=== PATIENT | male | born 1955 | race Caucasian/White ===

== ENCOUNTER 2018-05-07 18:02 | Emergency (ER) | payer SELFPAY ==
--- NOTE | 2018-05-07 20:27 | ED ---
Lower Extremity - HPI Summary HPI Summary: 62-year-old male presents with right middle finger erythema for the past couple days. He states he's had this before and he gets some pus drainage from the area from the tip of his finger. 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 He states that they removed the nail. He is not diabetic. No fevers. No spreading redness. He has not been on antibiotics recently. Has full range of motion of the finger. - History of Current Complaint Chief Complaint: EDExtremityUpper Stated Complaint: RT FINGER INJURY Time Seen by Provider: 05/07/18 19:30 Pain Intensity: 0 - Allergies/Home Medications Allergies/Adverse Reactions: Allergies Allergy/AdvReac Type Severity Reaction Status Date / Time morphine Allergy Itching Verified 05/07/18 18:07 PMH/Surg Hx/FS Hx/Imm Hx Endocrine/Hematology History: Denies: Hx Anticoagulant Therapy Cardiovascular History: Denies: Hx Myocardial Infarction Infectious Disease History: No Infectious Disease History: Denies: Traveled Outside the [place] in Last 30 Days - Family History Known Family History: Negative: Diabetes - Social History Substance Use Type: Reports: None Smoking Status (MU): Unknown if Ever Smoked Review of Systems Negative: Fever Negative: Chest Pain Negative: Shortness Of Breath Positive: Myalgia - right middle finger erythema All Other Systems Reviewed And Are Negative: Yes Physical Exam Triage Information Reviewed: Yes Vital Signs On Initial Exam: Initial Vitals Temp Pulse Resp BP Pulse Ox 97.6 F 74 18 143/80 99 05/07/18 18:04 05/07/18 18:04 05/07/18 18:04 05/07/18 18:04 05/07/18 18:04 Vital Signs Reviewed: Yes Appearance: Positive: Well-Appearing Skin: Positive: Warm, Dry, Other - erthyema on right middle finger tip does not follow tendon sheath Head/Face: Positive: Normal Head/Face Inspection Eyes: Positive: Normal, Conjunctiva Clear ENT: Positive: Pharynx normal Respiratory/Lung Sounds: Positive: Clear to Auscultation, Breath Sounds Present Cardiovascular: Positive: Normal, RRR Musculoskeletal: Positive: Strength/ROM Intact - right middle finger, Other - good pulses Neurological: Positive: Normal Psychiatric: Positive: Normal Procedures - Incision and Drainage right middle finger Site: right middle finger Anesthesia: Digital Instrument(s): Needle Diagnostics - Vital Signs Vital Signs Temp Pulse Resp BP Pulse Ox 05/07/18 18:04 97.6 F 74 18 143/80 99 - Laboratory Lab Statement: Any lab studies that have been ordered have been reviewed, and results considered in the medical decision making process. Lower Extremity Course/Dx - Course Course Of Treatment: 62-year-old male presents with right middle finger erythema for the past couple days. He states he's had this before and he gets some pus drainage from the area from the tip of his finger. 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 He states that they removed the nail. He is not diabetic. No fevers. No spreading redness. He has not been on antibiotics recently. Has full range of motion of the finger. On exam has erythema to the tip of right middle finger. X-ray shows no changes to the bone. attempted needle aspiration and minimal amount of pus with 1 cc of blood. will place on keflex. patient understand and agrees with plan. - Diagnoses Differential Diagnosis/HQI/PQRI: Positive: Tenosynovitis, Other - abscess, cellulitis Provider Diagnoses: Abscess Discharge - Sign-Out/Discharge Documenting (check all that apply): Patient Departure - Discharge Plan Condition: Good Disposition: HOME Prescriptions: Cephalexin CAP* [Keflex CAP*] 500 mg PO TID #29 cap Patient Education Materials: Abscess (ED) Referrals: Moris Ríos MD [Primary Care Provider] - Additional Instructions: Take antibiotic three times a day for 10 days, first dose given in ED do warm soaks of area Take ibuprofen or Tylenol for pain every 6 hours Follow up with ortho about recurrent abscess of the area Return to ED if develop fever, area of redness spreads, or any new or worsening symptoms - Billing Disposition and Condition Condition: GOOD Disposition: Home
[2018-05-07] MEDS ORDERED: Cephalexin CAP* 500 MG PO ONE (20:48)
[2018-05-07 21:29] VITALS: BP 160/75
--- NOTE | 2018-05-08 07:48 | RAD ---
INDICATION: Right third digit infection COMPARISON: None TECHNIQUE: AP, lateral, and oblique views were obtained. 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 There is no apparent bony erosion. The soft tissues are prominent. It is not known whether this is acute or represents a chronic finding. There is no foreign body. IMPRESSION: SOFT TISSUE PROMINENCE ABOUT THE REMAINING PORTION OF THE DISTAL PHALANX OF THE THIRD DIGIT
== END 2018-05-07 21:25 | disposition home or self-care (01) ==
LOC: ED 18:02
DX: L02.511 Cutaneous abscess of right hand (principal); Z88.5 Allergy status to narcotic agent
CPT/HCPCS: 10060; 73140; 87070; 87077; 87205; 87640; 87641; 99282; A9270-GY